=== PATIENT | male | born 1985 | race Caucasian/White ===

== ENCOUNTER → 2021-01-03 10:22 | Outpatient (CLI) | payer OTHER, SELFPAY ==
[2021-01-03 12:24] LABS: Cholesterol 182 mg/dL (200); Creatinine, Serum 0.85 mg/dL (0.70-1.30); EST Glomerular Filtration Rate 109 mL/min (>60); Est Glom Filt Rate - Afr Amer 132 mL/min (>60); High Density Lipoprotein 65 mg/dL; Triglycerides 67 mg/dL; Very Low Density Lipoprotein 13 mg/dL (5-40)
[2021-01-03 12:28] LABS: Vitamin D,25 Hydroxy 21.7 ng/mL
== END ==
PROVIDERS: PCP Family Medicine; Referring Provider Family Medicine; Visit Provider Family Medicine
DX: Z00.00 Encounter for general adult medical examination without abnormal findings (principal)
CPT/HCPCS: 36415; 80061; 82306; 82565

== ENCOUNTER → 2022-03-12 | Outpatient (CLI) | payer OTHER, SELFPAY ==
[2022-03-12 10:33] LABS: Vitamin D,25 Hydroxy 24.9 ng/mL
[2022-03-12 11:16] LABS: Cholesterol 201 mg/dL (200); Creatinine, Serum 0.83 mg/dL (0.70-1.30); EST Glomerular Filtration Rate 111 mL/min (>60); Est Glom Filt Rate - Afr Amer 135 mL/min (>60); Glucose 100 mg/dL (74-106); High Density Lipoprotein 47 mg/dL; Thyroid Stim Hormone (TSH) 1.18 uIU/mL (0.358-3.74); Triglycerides 136 mg/dL; Very Low Density Lipoprotein 27 mg/dL (5-40)
== END | disposition home or self-care (01) ==
LOC: MFPLAB 08:28
PROVIDERS: PCP Family Medicine; Referring Provider Family Medicine; Visit Provider Family Medicine
DX: Z00.00 Encounter for general adult medical examination without abnormal findings (principal); E55.9 Vitamin D deficiency, unspecified; F41.9 Anxiety disorder, unspecified
CPT/HCPCS: 36415; 80061; 82306; 82565; 82947; 84443